=== PATIENT | female | born 1945 | race Caucasian/White ===

== ENCOUNTER 2021-12-16 15:42 | Inpatient (IN) | payer MEDICARE, OTHER ==
[2021-12-16] MEDS ORDERED: cefTRIAXone\\ROCEPHIN 1 GM VIAL ONE (17:03)
[2021-12-16] MEDS ORDERED: Azithromycin 500 MG VIAL ONE (17:04)
[2021-12-16 17:11] LABS: #Basophils 0.1 10x3/uL (0.0-0.2); #Eosinphils 0.5 10x3/uL (0.0-0.5); #Neutrophils 9.4 10x3/uL (1.5-8.4); %Basophils 0.7 % (0.0-2.0); %Eosinophils 4.2 % (0.0-6.0); %Lymphocytes 13.2 % (18.0-47.0); %Monocytes 7.8 % (0.0-10.0); %Neutrophils 73.3 % (40.0-75.0); Hemoglobin 8.6 g/dL (12.0-15.5); Mean Corpuscular HGB CONC 30.4 g/dL (32.0-36.0); Mean Corpuscular Hemoglobin 30.6 pg (27.0-33.0); Mean Corpuscular Volume 100.7 fl (81.6-98.3); Mean Platelet Volume 8.8 fl (7.4-10.4); Platelet Count 657 10x3/uL (150-450); RBC Distribution Width 15.8 % (11.5-14.5); Red Blood Cell (RBC) Count 2.81 10x6/uL (3.90-5.03); White Blood Cell (WBC) Count 12.8 10x3/uL (3.5-10.5)
[2021-12-16 17:20] LABS: ALT (SGPT) 9 U/L (8-55); AST (SGOT) 21 U/L (5-34); Albumin 3.4 g/dL (3.4-4.8); Alkaline Phosphatase 82 U/L (40-110); Anion Gap 15 mmol/L (10-20); BUN (Urea Nitrogen) 11 mg/dL (9.8-20.1); Bilirubin, Total 0.3 mg/dL (0.2-1.2); Calc. Creatinine Clearance 0 mL/min (70-130); Calcium 8.9 mg/dL (7.8-10.44); Carbon Dioxide 27 mmol/L (23-31); Chloride 103 mmol/L (98-107); Glucose 95 mg/dL (83-110); Protein, Total 6.4 g/dL (5.8-8.1); Sodium 141 mmol/L (136-145)
[2021-12-16 18:50] LABS: SARS-CoV-2 NAA Rapid Test Not Detected (NotDetected)
[2021-12-16 20:36] LABS: Magnesium 2.2 mg/dL (1.6-2.6)
[2021-12-17 00:11] VITALS: BMI 24.9
[2021-12-17] MEDS ORDERED: Vancomycin HCl 750 MG in Sodium Chloride 0.9% 250 ML 250 ML IVPB SCH (01:00)
[2021-12-17] MEDS: Apixaban 2.5 MG TAB PO SCH ×3 (01:01→22:36)
[2021-12-17] MEDS: Metoprolol Tartrate 25 MG TAB PO SCH ×3 (01:01→21:05)
[2021-12-17] MEDS: Rosuvastatin 10 MG TAB PO SCH ×2 (01:01→21:05)
[2021-12-17] MEDS: Mirtazapine 15 MG Soltab PO SCH ×2 (01:01→21:05)
[2021-12-17 05:56] LABS: #Basophils 0.1 10x3/uL (0.0-0.2); #Eosinphils 0.6 10x3/uL (0.0-0.5); #Neutrophils 7.5 10x3/uL (1.5-8.4); %Basophils 0.9 % (0.0-2.0); %Eosinophils 5.6 % (0.0-6.0); %Lymphocytes 13.7 % (18.0-47.0); %Monocytes 9.5 % (0.0-10.0); %Neutrophils 69.5 % (40.0-75.0); Mean Corpuscular HGB CONC 31.6 g/dL (32.0-36.0); Mean Corpuscular Hemoglobin 31.4 pg (27.0-33.0); Mean Corpuscular Volume 99.3 fl (81.6-98.3); Mean Platelet Volume 9.2 fl (7.4-10.4); Platelet Count 589 10x3/uL (150-450); RBC Distribution Width 15.9 % (11.5-14.5); Red Blood Cell (RBC) Count 2.87 10x6/uL (3.90-5.03); White Blood Cell (WBC) Count 10.8 10x3/uL (3.5-10.5)
[2021-12-17] MEDS: Levothyroxine Sodium 88 MCG TAB PO SCH (06:03)
[2021-12-17 06:12] LABS: Anion Gap 18 mmol/L (10-20); BUN (Urea Nitrogen) 9 mg/dL (9.8-20.1); Calc. Creatinine Clearance 76 mL/min (70-130); Calcium 8.7 mg/dL (7.8-10.44); Carbon Dioxide 22 mmol/L (23-31); Chloride 104 mmol/L (98-107); Glucose 91 mg/dL (83-110); Potassium 4.1 mmol/L (3.5-5.1); Sodium 140 mmol/L (136-145)
[2021-12-17 07:44] LABS: Ferritin 488.85 ng/mL (10-291)
[2021-12-17] MEDS ORDERED: Vancomycin 1 GM in Premix Bag 1 BAG IVPB SCH (09:00)
[2021-12-17] MEDS ORDERED: Cefepime 1 GM in Sodium Chloride 0.9% 100 ML IVPB SCH (09:00)
[2021-12-17] MEDS: Potassium Chloride 20 MEQ TAB PO SCH ×2 (09:40→17:34)
[2021-12-17] MEDS: Folic Acid 1 MG TAB PO SCH (09:40)
[2021-12-17] MEDS: Cyanocobalamin (Vitamin B-12) 1,000 MCG TAB PO SCH (09:40)
[2021-12-17] MEDS ORDERED: Iopamidol 300 61% 100 ML VIAL FS ONE (15:10)
[2021-12-17] MEDS: Cefepime 1 GM in Sodium Chloride 0.9% 100 ML IVPB SCH (15:46)
[2021-12-17] MEDS: Vancomycin HCl 750 MG in Sodium Chloride 0.9% 250 ML 250 ML IVPB SCH (15:48)
[2021-12-17] MEDS ORDERED: Sodium Chloride 0.9% 250 ML 250 ML ONE (18:03)
[2021-12-17] MEDS ORDERED: Azithromycin 500 MG VIAL ONE (18:03)
[2021-12-17] MEDS: Azithromycin 500 MG in Sodium Chloride 0.9% 250 ML 250 ML IVPB SCH (18:06)
[2021-12-17] MEDS: Acetaminophen 325 MG TAB PO PRN (21:04)
[2021-12-17 22:40] LABS: Legionella Urinary Ag Negative (Negative); Strep pneumo Urine Ag NEGATIVE (NEGATIVE)
[2021-12-17] MEDS ORDERED: Gabapentin 100 MG CAP PO SCH (22:45)
[2021-12-18] MEDS: Cefepime 1 GM in Sodium Chloride 0.9% 100 ML IVPB SCH ×2 (03:50→17:15)
[2021-12-18] MEDS: Vancomycin HCl 750 MG in Sodium Chloride 0.9% 250 ML 250 ML IVPB SCH (03:51)
[2021-12-18] MEDS: Levothyroxine Sodium 88 MCG TAB PO SCH (06:21)
[2021-12-18] MEDS ORDERED: VANCOMYCIN 1.25 GM/250 ML BAG IVPB SCH (06:21)
[2021-12-18] MEDS ORDERED: Azithromycin 500 MG in Sodium Chloride 0.9% 250 ML 250 ML IVPB SCH (08:00)
[2021-12-18] MEDS: Cyanocobalamin (Vitamin B-12) 1,000 MCG TAB PO SCH (08:20)
[2021-12-18] MEDS: Potassium Chloride 20 MEQ TAB PO SCH ×2 (08:20→17:31)
[2021-12-18] MEDS: Metoprolol Tartrate 25 MG TAB PO SCH ×2 (08:20→21:37)
[2021-12-18] MEDS: Azithromycin 500 MG in Sodium Chloride 0.9% 250 ML 250 ML IVPB SCH (08:21)
[2021-12-18] MEDS: Folic Acid 1 MG TAB PO SCH (08:21)
[2021-12-18] MEDS: Apixaban 2.5 MG TAB PO SCH ×2 (08:35→21:36)
[2021-12-18] MEDS ORDERED: Cefepime 2 GM in Sodium Chloride 0.9% 100 ML IVPB SCH (09:00)
[2021-12-18 09:19] LABS: #Basophils 0.1 10x3/uL (0.0-0.2); #Eosinphils 0.7 10x3/uL (0.0-0.5); #Neutrophils 9.2 10x3/uL (1.5-8.4); %Basophils 0.8 % (0.0-2.0); %Eosinophils 5.9 % (0.0-6.0); %Lymphocytes 5.9 % (18.0-47.0); %Monocytes 8.8 % (0.0-10.0); %Neutrophils 77.9 % (40.0-75.0); Hemoglobin 7.8 g/dL (12.0-15.5); Mean Corpuscular HGB CONC 31.3 g/dL (32.0-36.0); Mean Corpuscular Hemoglobin 30.8 pg (27.0-33.0); Mean Corpuscular Volume 98.4 fl (81.6-98.3); Mean Platelet Volume 8.7 fl (7.4-10.4); Platelet Count 563 10x3/uL (150-450); Red Blood Cell (RBC) Count 2.53 10x6/uL (3.90-5.03); White Blood Cell (WBC) Count 11.8 10x3/uL (3.5-10.5)
[2021-12-18] MEDS ORDERED: Furosemide 20 MG/2 ML VIAL SLOW IVP SCH (10:00)
[2021-12-18] MEDS: Acetaminophen 325 MG TAB PO PRN ×2 (16:35→21:36)
[2021-12-18] MEDS: Hydrocortisone 1% Cream 30 GM TUBE TOP SCH (21:37)
[2021-12-18] MEDS: Rosuvastatin 10 MG TAB PO SCH (21:37)
[2021-12-18] MEDS: Mirtazapine 15 MG Soltab PO SCH (21:39)
[2021-12-19 05:20] LABS: Anion Gap 13 mmol/L (10-20); BUN (Urea Nitrogen) 11 mg/dL (9.8-20.1); Calc. Creatinine Clearance 69 mL/min (70-130); Calcium 8.3 mg/dL (7.8-10.44); Carbon Dioxide 27 mmol/L (23-31); Chloride 106 mmol/L (98-107); Glucose 94 mg/dL (83-110); Iron 21 ug/dL (50-170); Iron Binding Capacity, Total 138 mcg/dL (265-497); Potassium 3.6 mmol/L (3.5-5.1); Sodium 142 mmol/L (136-145)
[2021-12-19 05:24] LABS: #Basophils 0.1 10x3/uL (0.0-0.2); #Monocytes 0.9 10x3/uL (0.0-1.1); #Neutrophils 5.3 10x3/uL (1.5-8.4); %Basophils 0.9 % (0.0-2.0); %Eosinophils 11.7 % (0.0-6.0); %Lymphocytes 13.3 % (18.0-47.0); %Neutrophils 62.7 % (40.0-75.0); Hemoglobin 7.5 g/dL (12.0-15.5); Mean Corpuscular HGB CONC 30.9 g/dL (32.0-36.0); Mean Corpuscular Hemoglobin 30.6 pg (27.0-33.0); Mean Corpuscular Volume 99.2 fl (81.6-98.3); Mean Platelet Volume 8.9 fl (7.4-10.4); Platelet Count 569 10x3/uL (150-450); RBC Distribution Width 15.8 % (11.5-14.5); Red Blood Cell (RBC) Count 2.45 10x6/uL (3.90-5.03); White Blood Cell (WBC) Count 8.5 10x3/uL (3.5-10.5)
[2021-12-19] MEDS: Levothyroxine Sodium 88 MCG TAB PO SCH (06:16)
[2021-12-19] MEDS: Hydrocortisone 1% Cream 30 GM TUBE TOP SCH (09:02)
[2021-12-19] MEDS: Folic Acid 1 MG TAB PO SCH (09:02)
[2021-12-19] MEDS: Cyanocobalamin (Vitamin B-12) 1,000 MCG TAB PO SCH (09:03)
[2021-12-19] MEDS: Potassium Chloride 20 MEQ TAB PO SCH (09:03)
[2021-12-19] MEDS: Apixaban 2.5 MG TAB PO SCH (09:03)
[2021-12-19] MEDS: Metoprolol Tartrate 25 MG TAB PO SCH (09:03)
[2021-12-19 12:12] VITALS: BP 126/59; TEMP 97.5
== END 2021-12-19 16:45 | disposition home or self-care (01) | DRG 193 ==
LOC: CSHERS 15:42 → CSHTELE 23:19 → OBSVTOIN 23:27
PROVIDERS: ADMIT Family Medicine; ATTEND Internal Medicine
DX: J18.9 Pneumonia, unspecified organism (principal); I50.33 Acute on chronic diastolic (congestive) heart failure; B02.29 Other postherpetic nervous system involvement; J96.11 Chronic respiratory failure with hypoxia; Z66 Do not resuscitate; J84.10 Pulmonary fibrosis, unspecified; J42 Unspecified chronic bronchitis; F17.210 Nicotine dependence, cigarettes, uncomplicated; S00.03XA Contusion of scalp, initial encounter; W18.30XA Fall on same level, unspecified, initial encounter; F03.90 Unspecified dementia, unspecified severity, without behavioral disturbance, psychotic disturbance, mood disturbance, and anxiety; E89.0 Postprocedural hypothyroidism; I48.91 Unspecified atrial fibrillation; D53.9 Nutritional anemia, unspecified; Z20.822 Contact with and (suspected) exposure to COVID-19; Z85.850 Personal history of malignant neoplasm of thyroid; Z88.2 Allergy status to sulfonamides; Z79.899 Other long term (current) drug therapy; Z79.890 Hormone replacement therapy; Z79.01 Long term (current) use of anticoagulants; Z86.16 Personal history of COVID-19; Z86.718 Personal history of other venous thrombosis and embolism; Z86.711 Personal history of pulmonary embolism; Z98.890 Other specified postprocedural states; Z99.81 Dependence on supplemental oxygen; Z79.891 Long term (current) use of opiate analgesic; Z82.49 Family history of ischemic heart disease and other diseases of the circulatory system; Z87.01 Personal history of pneumonia (recurrent)
CPT/HCPCS: 36415; 70450; 71045; 71260; 80048; 80053; 82607; 82728; 82746; 83540; 83550; 83605; 83735; 83880; 84484; 85025; 85046; 87040; 87449; 87899; 93005; 94760; G0378; J0456; J0692; J0696; J1940; J3370; J3490; J7050; Q9967; U0002

== ENCOUNTER 2024-02-05 21:20 | Emergency (ER) | payer MEDICARE, OTHER ==
[2024-02-05 22:12] LABS: #Basophils 0.09 10x3/uL (0.0-0.2); #Monocytes 0.56 10x3/uL (0.0-1.1); %Basophils 1.6 % (0.0-2.0); %Eosinophils 7.2 % (0.0-6.0); %Lymphocytes 37.3 % (18.0-47.0); %Monocytes 10.1 % (0.0-10.0); %Neutrophils 43.6 % (40.0-75.0); Hematocrit 35.3 % (34.9-44.5); Mean Corpuscular Hemoglobin 32.4 pg (27.0-33.0); Mean Corpuscular Volume 95.4 fL (81.6-98.3); Mean Platelet Volume 10.3 fL (7.4-10.4); Platelet Count 227 10x3/uL (150-450); RBC Distribution Width 13.4 % (11.5-14.5); White Blood Cell (WBC) Count 5.5 10x3/uL (3.5-10.5)
[2024-02-05] MEDS ORDERED: Ketorolac Tromethamine 30 MG (1 mL) VIAL ONE (22:12)
[2024-02-05 22:21] LABS: Anion Gap 16 mmol/L (10-20); BUN (Urea Nitrogen) 20 mg/dL (9.8-20.1); Calc. Creatinine Clearance 0 mL/min (70-130); Carbon Dioxide 20 mmol/L (23-31); Chloride 108 mmol/L (98-107); Estimated GFR 42; Glucose 113 mg/dL (83-110); Potassium 4.4 mmol/L (3.5-5.1); Sodium 140 mmol/L (136-145)
[2024-02-05 22:28] LABS: Troponin I Less than 0.010 ng/mL (< 0.028)
[2024-02-06 00:29] LABS: Troponin I Less than 0.010 ng/mL (< 0.028)
== END 2024-02-06 00:47 | disposition home or self-care (01) ==
LOC: CSHERS 21:20
DX: M75.52 Bursitis of left shoulder (principal); E78.5 Hyperlipidemia, unspecified; E03.9 Hypothyroidism, unspecified; Z79.899 Other long term (current) drug therapy
CPT/HCPCS: 71045; 80048; 84484; 85025; 93005 ×2; 96374; 99283; J1885; 36415